=== PATIENT | female | born 1965 | race American Indian/Alaskan Native ===

== ENCOUNTER 2019-12-06 16:32 | Emergency (ER) | payer MEDICARE ==
[2019-12-06] MEDS ORDERED: KETOROLAC 60 MG/2 ML INJ IM ONE (17:08)
--- NOTE | 2019-12-06 17:39 | XRay Report ---
RIGHT KNEE 3 VIEW(S) INDICATION / CLINICAL INFORMATION: right knee pain COMPARISON: None available. FINDINGS: BONES / JOINT(S): No acute fracture or subluxation. No significant arthritis. SOFT TISSUES: Small joint effusion is suspected. ADDITIONAL FINDINGS: None. IMPRESSION: No acute osseous abnormality. Small joint effusion is suspected. Signer Name: Red Pinto MD Signed: 12/06/2019 5:35 PM Workstation Name: [id number]
--- NOTE | 2019-12-06 19:41 | Vascular Lab Report ---
DUPLEX DOPPLER LOWER EXTREMITY VEINS, RIGHT INDICATION / CLINICAL INFORMATION: right leg pain and swelling. TECHNIQUE: Duplex doppler imaging was performed through the veins of the right lower extremity using venous comp ression and other maneuvers. COMPARISON: None available. FINDINGS: RIGHT COMMON FEMORAL VEIN: Negative. RIGHT FEMORAL VEIN: Negative. RIGHT POPLITEAL VEIN: Negative. RIGHT CALF VEINS: Negative. ADDITIONAL FINDINGS: 4 cm right popliteal cyst IMPRESSION: 1. No sonographic evidence for DVT in the right lower extremity. 2. Right popliteal cyst Signer Name: Niels Rao MD Signed: 12/06/2019 7:37 PM Workstation Name: [id number]
[2019-12-06 19:57] VITALS: BP 116/66
--- NOTE | 2019-12-06 20:00 | Emergency Department Report ---
ED Extremity Problem HPI - General Chief complaint: Extremity Problem,Nontraumatic Stated complaint: LEG PAIN RT Time Seen by Provider: 12/06/19 16:57 Source: patient Mode of arrival: Ambulatory Limitations: No Limitations - History of Present Illness Initial comments: Patient is a 54-year-old female presents emergency room complaints of right leg pain that began a couple days ago. She states that she has pain in her right knee on the anterior and posterior side. She states that she feels like she has swelling in her right leg. She denies any calf pain. She denies any fall or injury. She denies any numbness or weakness. She denies any recent travel, recent surgery, immobilization, hormone use. she denies any CP or SOB. No allergies to medications. She states that she went through menopause. Severity scale (0 -10): 3 - Related Data Previous Rx's Medication Instructions Recorded Last Taken Type Cyclobenzaprine [Flexeril 10 MG 10 mg PO BID #14 tablet 03/21/16 Unknown Rx TAB] Ibuprofen [Motrin 800 MG tab] 800 mg PO BID PRN #14 tablet 03/21/16 Unknown Rx Naproxen [EC-Naprosyn] 500 mg PO BID PRN #20 tablet. 12/06/19 Unknown Rx Allergies Allergy/AdvReac Type Severity Reaction Status Date / Time No Known Allergies Allergy Unverified 10/05/13 12:45 ED Review of Systems ROS: Stated complaint: LEG PAIN RT Other details as noted in HPI Comment: All other systems reviewed and negative ED Past Medical Hx - Past Medical History Previous Medical History?: Yes Hx Psychiatric Treatment: Yes (schizophrenia) Additional medical history: depression - Surgical History Past Surgical History?: Yes Additional Surgical History: ovarian cyst removed - Social History Smoking Status: Never Smoker Substance Use Type: None - Medications Home Medications: Home Medications Medication Instructions Recorded Confirmed Last Taken Type Cyclobenzaprine [Flexeril 10 MG 10 mg PO BID #14 tablet 03/21/16 Unknown Rx TAB] Ibuprofen [Motrin 800 MG tab] 800 mg PO BID PRN #14 tablet 03/21/16 Unknown Rx Naproxen [EC-Naprosyn] 500 mg PO BID PRN #20 tablet. 12/06/19 Unknown Rx ED Physical Exam - General Limitations: No Limitations General appearance: alert, in no apparent distress - Head Head exam: Present: atraumatic, normocephalic - Eye Eye exam: Present: normal appearance - ENT ENT exam: Present: mucous membranes moist - Respiratory Respiratory exam: Present: normal lung sounds bilaterally. Absent: respiratory distress, wheezes, rales, rhonchi, stridor, chest wall tenderness, accessory muscle use, decreased breath sounds, prolonged expiratory - Cardiovascular Cardiovascular Exam: Present: regular rate, normal rhythm, normal heart sounds. Absent: systolic murmur, diastolic murmur, rubs - Extremities Exam Extremities exam: Present: other (ttp to the right anterior and posterior knee, mild amount of edema, no increased warmth or erythema, no skin changes, no calf ttp, no obvious edema down the RLE, neurovascularly intact) - Neurological Exam Neurological exam: Present: alert, oriented X3 - Psychiatric Psychiatric exam: Present: normal affect, normal mood - Skin Skin exam: Present: warm, dry, intact ED Course Vital Signs 12/06/19 12/06/19 16:45 20:12 Temperature 98.3 F Pulse Rate 75 76 Respiratory 17 16 Rate Blood Pressure 116/66 O2 Sat by Pulse 98 98 Oximetry ED Medical Decision Making - Radiology Data Radiology results: report reviewed DUPLEX DOPPLER LOWER EXTREMITY VEINS, RIGHT INDICATION / CLINICAL INFORMATION: right leg pain and swelling. TECHNIQUE: Duplex doppler imaging was performed through the veins of the right lower extremity using venous compression and other maneuvers. COMPARISON: None available. FINDINGS: RIGHT COMMON FEMORAL VEIN: Negative. RIGHT FEMORAL VEIN: Negative. RIGHT POPLITEAL VEIN: Negative. RIGHT CALF VEINS: Negative. ADDITIONAL FINDINGS: 4 cm right popliteal cyst IMPRESSION: 1. No sonographic evidence for DVT in the right lower extremity. 2. Right popliteal cyst Signer Name: Niels Rao MD Signed: 12/06/2019 7:37 PM Workstation Name: [id number] Transcribed By: TL Dictated By: Niels Rao MD Electronically Authenticated By: Niels Rao MD Signed Date/Time: 12/06/191936 DD/ 35 TD/TT: RIGHT KNEE 3 VIEW(S) INDICATION / CLINICAL INFORMATION: right knee pain COMPARISON: None available. FINDINGS: BONES / JOINT(S): No acute fracture or subluxation. No significant arthritis. SOFT TISSUES: Small joint effusion is suspected. ADDITIONAL FINDINGS: None. IMPRESSION: No acute osseous abnormality. Small joint effusion is suspected. Signer Name: Lora Pinto MD Signed: 12/06/2019 5:35 PM Workstation Name: [id number] Transcribed By: SS Dictated By: LORA PINTO Electronically Authenticated By: LORA PINTO Signed Date/Time: 12/06/191734 DD/ 33 TD/TT: - Medical Decision Making Patient is a 54-year-old female presents emergency room complaints of right leg pain that began a couple days ago. She states that she has pain in her right knee on the anterior and posterior side. She states that she feels like she has swelling in her right leg. She denies any calf pain. She denies any fall or injury. She denies any numbness or weakness. She denies any recent travel, recent surgery, immobilization, hormone use. she denies any CP or SOB. No allergies to medications. She states that she went through menopause. vitals are normal. on exam: ttp to the right anterior and posterior knee, mild amount of edema, no increased warmth or erythema, no skin changes, no calf ttp, no obvious edema down the RLE, neurovascularly intact. XR right knee: No acute osseous abnormality. Small joint effusion is suspected. doppler US RLE: 1. No sonographic evidence for DVT in the right lower extremity. 2. Right popliteal cyst. Patient given Toradol IM while in the emergency department symptoms improved. Discussed all results with patient and answered questions. Patient will be referred to orthopedic and primary care physician. Patient given prescription for naproxen. Patient placed in Braeden bandage by cardiovascular or nurse and remained neurovascularly intact. advised pt Please take medication as prescribed. Please do not wear Braeden bandage too tightly and do not wear at night while sleeping. Please use ice for 15 minutes at a time, rest, elevation of the leg. Follow-up with your primary care doctor. Follow-up with orthopedic doctor. Return to emergency room for any new or worsening symptoms. - Differential Diagnosis strain, sprain, DDD, effusion, gout, arthritis, DVT, bakers cyst Critical care attestation.: If time is entered above; I have spent that time in minutes in the direct care of this critically ill patient, excluding procedure time. ED Disposition Clinical Impression: Right leg pain, Knee effusion, right, Unruptured cyst of right popliteal space Disposition: - TO HOME OR SELFCARE Is pt being admited?: No Does the pt Need Aspirin: No Condition: Stable Instructions: Loomis's Cyst (ED), Knee Effusion (ED), RICE Therapy (ED) Additional Instructions: Please take medication as prescribed. Please do not wear Braeden bandage too tightly and do not wear at night while sleeping. Please use ice for 15 minutes at a time, rest, elevation of the leg. Follow-up with your primary care doctor. Follow-up with orthopedic doctor. Return to emergency room for any new or wor sening symptoms. Prescriptions: Naproxen [EC-Naprosyn] 500 mg PO BID PRN #20 tablet.dr PRN Reason: pain Referrals: JOHN DE LA FUENTE MD [Staff Physician] - 3-5 Days [facility] [Provider Group] - 3-5 Days [facility] [Outside] - 3-5 Days JEFFRY SPEARS MD [Staff Physician] - 3-5 Days [facility] [Provider Group] - 3-5 Days Time of Disposition: 19:59 Print Language: UZBEK
== END 2019-12-06 20:12 | disposition home or self-care (01) ==
LOC: ED 16:32
DX: M71.21 Synovial cyst of popliteal space [Baker], right knee (principal); F20.9 Schizophrenia, unspecified; F32.9 Major depressive disorder, single episode, unspecified; Z79.899 Other long term (current) drug therapy
CPT/HCPCS: 73562; 93971; 96372; 99284; J1885

== ENCOUNTER 2021-08-14 14:22 | Emergency (ER) | payer MEDICARE ==
[2021-08-14 14:35] VITALS: BP 129/78
--- NOTE | 2021-08-14 16:13 | Emergency Department Report ---
ED General Adult HPI - General Chief complaint: Abdominal Pain Stated complaint: ABD PAIN/SWOLLEN LEGS Time Seen by Provider: 08/14/21 15:32 Source: patient, EMS Mode of arrival: Stretcher Limitations: No Limitations - History of Present Illness Initial comments: Patient presents with complaints of generalized abdominal pain, sharp, non radiating, 7/10, not worsened or relieved by anything. Denies nausea, vomiting. Last BM was today and formed. Endorses flatulence. Denies dysuria, frequency, urgency, vaginal bleeding, discharge. -: week(s) - Related Data Previous Rx's Medication Instructions Recorded Last Taken Type Cyclobenzaprine [Flexeril 10 MG 10 mg PO BID #14 tablet 03/21/16 Unknown Rx TAB] Ibuprofen [Motrin 800 MG tab] 800 mg PO BID PRN #14 tablet 03/21/16 Unknown Rx Naproxen [EC-Naprosyn] 500 mg PO BID PRN #20 tablet. 12/06/19 Unknown Rx Allergies Allergy/AdvReac Type Severity Reaction Status Date / Time No Known Allergies Allergy Verified 08/14/21 14:32 ED Review of Systems ROS: Stated complaint: ABD PAIN/SWOLLEN LEGS Other details as noted in HPI Comment: All other systems reviewed and negative Constitutional: denies: chills, fever ED Past Medical Hx - Past Medical History Previous Medical History?: Yes Hx Psychiatric Treatment: Yes (schizophrenia) Additional medical history: depression - Surgical History Past Surgical History?: Yes Additional Surgical History: ovarian cyst removed - Social History Smoking Status: Never Smoker Substance Use Type: None - Medications Home Medications: Home Medications Medication Instructions Recorded Confirmed Last Taken Type Cyclobenzaprine [Flexeril 10 MG 10 mg PO BID #14 tablet 03/21/16 Unknown Rx TAB] Ibuprofen [Motrin 800 MG tab] 800 mg PO BID PRN #14 tablet 03/21/16 Unknown Rx Naproxen [EC-Naprosyn] 500 mg PO BID PRN #20 tablet. 12/06/19 Unknown Rx ED Physical Exam - General Limitations: No Limitations General appearance: alert, in no apparent distress - Head Head exam: Present: atraumatic, normocephalic - Eye Eye exam: Present: PERRL, EOMI - ENT ENT exam: Present: mucous membranes moist, other (airway patent) - Neck Neck exam: Present: other (supple; no JVD) - Respiratory Respiratory exam: Present: other (good air entry, nml I:E, CTAB, no use of NATALYA) - Cardiovascular Cardiovascular Exam: Present: regular rate. Absent: rubs, gallop - GI/Abdominal GI/Abdominal exam: Present: other (very distended with some shifting dullness; tender to palpation diffusely) - Extremities Exam Extremities exam: Present: other (3+ edema bilaterally in shins; non tender calves; neg Bernardo's sign bilaterally) - Back Exam Back exam: Present: full ROM. Absent: CVA tenderness (R), CVA tenderness (L) - Neurological Exam Neurological exam: Present: alert, oriented X3, CN II-XII intact. Absent: motor sensory deficit - Skin Skin exam: Present: warm, normal color ED Course Vital Signs 08/14/21 08/14/21 14:29 14:54 Temperature 97.4 F L Pulse Rate 100 H Respiratory 16 Rate Blood Pressure 129/78 [Left] O2 Sat by Pulse 97 99 Oximetry ED Medical Decision Making - Lab Data Result diagrams: 08/14/21 15:36 08/14/21 15:36 Laboratory Tests 08/14/21 08/14/21 08/14/21 15:36 15:36 16:20 WBC 12.2 H RBC 4.03 Hgb 10.0 L Hct 31.4 MCV 78 L MCH 25 L MCHC 32 RDW 15.5 H Plt Count 727 H Lymph % (Auto) 8.9 L [place] % (Auto) 7.1 Eos % (Auto) 0.8 Baso % (Auto) 0.7 Lymph # (Auto) 1.1 L [place] # (Auto) 0.9 H Eos # (Auto) 0.1 Baso # (Auto) 0.1 Seg Neutrophils % 82.5 H Seg Neutrophils # 10.1 H PT 14.5 INR 1.02 APTT 29.5 Sodium 133 L Potassium 3.9 Chloride 96.1 L Carbon Dioxide 22 Anion Gap 19 BUN 8 Creatinine 0.7 Estimated GFR > 60 BUN/Creatinine Ratio 11 Glucose 111 H Calcium 8.2 L Total Bilirubin < 0.20 AST 26 ALT 11 Alkaline Phosphatase 70 Total Protein 7.2 Albumin 2.7 L Albumin/Globulin Ratio 0.6 [address]ase [address] and left AMA - Medical Decision Making likely 2/2 tense ascites. need to r/o SBP, appendicitis, SBO and other acute surgical abdomen. Critical care attestation.: If time is entered above; I have spent that time in minutes in the direct care of this critically ill patient, excluding procedure time. ED Disposition Clinical Impression: Abdominal pain, Abdominal distension Disposition: 07 LEFT AGAINST MEDICAL ADVICE Is pt being admited?: No Does the pt Need Aspirin: No Condition: Stable Instructions: Abdominal Pain (ED) Time of Disposition: 18:30 (I explained to the patient the need for the CT abd/pelvis and paracentesis to rul out SBP and acute surgical abdomen. I also explained to the patient the risk of deterioration including up to fatal outcome. Patient has capacity, indicated understanding of instructions but was adamant about leaving AMA. does not want to wait for the CT scan, paracentesis or be admitted. )
[2021-08-14 16:26] LABS: Alanine Aminotransferase 11 units/L (7-56); Albumin 2.7 g/dL (3.9-5); Blood Urea Nitrogen 8 mg/dL (7-17); Calcium 8.2 mg/dL (8.4-10.2); Hemolysis Index 13
[2021-08-14 16:27] LABS: BUN/Creatinine Ratio 11
[2021-08-14 16:35] LABS: Basophils # (Auto) 0.1 K/mm3 (0.0-0.1); Basophils % (Auto) 0.7 % (0.0-1.8); Eosinophils # (Auto) 0.1 K/mm3 (0.0-0.4); Eosinophils % (Auto) 0.8 % (0.0-4.3); Hematocrit 31.4 % (30.3-42.9); Lymphocytes # (Auto) 1.1 K/mm3 (1.2-5.4); Lymphocytes % (Auto) 8.9 % (13.4-35.0); Mean Corpuscular HGB Conc 32 % (30-34); Mean Corpuscular Volume 78 fl (79-97); Monocytes # (Auto) 0.9 K/mm3 (0.0-0.8); Monocytes % (Auto) 7.1 % (0.0-7.3); Platelet Count 727 K/mm3 (140-440); Red Blood Count 4.03 M/mm3 (3.65-5.03); Red Cell Distribution Width 15.5 % (13.2-15.2)
[2021-08-14 17:49] LABS: INR 1.02 (0.87-1.13); Partial Thromboplastin Time 29.5 Sec. (24.2-36.6)
== END 2021-08-14 18:44 | disposition left against medical advice (07) ==
LOC: ED 14:22
DX: R10.9 Unspecified abdominal pain (principal); R14.0 Abdominal distension (gaseous); F20.9 Schizophrenia, unspecified
CPT/HCPCS: 36415; 80053; 83690; 85025; 85610; 85730; 99284

== ENCOUNTER → 2021-08-21 | Emergency (ER) | payer MEDICARE ==
[~2021-08-21] MED LIST: HEPARIN 10,000 UNITS/10 ML VIAL ONE; HEPARIN/ 0.45% NACL DRIP 25,000 UNIT/500 ML BAG ONE
== END ==
LOC: ED 02:11
DX: R60.9 Edema, unspecified (principal); Z53.21 Procedure and treatment not carried out due to patient leaving prior to being seen by health care provider
CPT/HCPCS: J1644 ×2; J3490

== ENCOUNTER 2021-08-24 03:03 | Emergency (ER) | payer MEDICARE ==
[2021-08-24 04:26] LABS: Basophils % (Auto) 0.3 % (0.0-1.8); Eosinophils % (Auto) 0.3 % (0.0-4.3); Hematocrit 29.7 % (30.3-42.9); Hemoglobin 9.7 gm/dl (10.1-14.3); Lymphocytes # (Auto) 0.8 K/mm3 (1.2-5.4); Lymphocytes % (Auto) 5.2 % (13.4-35.0); Mean Corpuscular HGB Conc 33 % (30-34); Mean Corpuscular Volume 77 fl (79-97); Monocytes % (Auto) 6.5 % (0.0-7.3); Platelet Count 639 K/mm3 (140-440); Red Blood Count 3.87 M/mm3 (3.65-5.03)
[2021-08-24 04:47] LABS: Alanine Aminotransferase 12 units/L (7-56); Albumin 2.5 g/dL (3.9-5); Blood Urea Nitrogen 9 mg/dL (7-17); Calcium 8.6 mg/dL (8.4-10.2); Hemolysis Index 34
[2021-08-24 04:52] LABS: BUN/Creatinine Ratio 13
[2021-08-24] MEDS ORDERED: PIPERACILLIN/TAZOBACTAM 3.375 3.375 GM/50 ML BAG IV ONE (08:08)
[2021-08-24 08:21] LABS: Bacteria,Urine 1+ /HPF (Negative); Bilirubin,Urine NEG (Negative); Blood,Urine MOD (Negative); Color,Urine Yellow (Yellow); Mucus,Urine FEW /HPF; Urobilinogen,Urine < 2.0 mg/dL (<2.0)
--- NOTE | 2021-08-24 09:32 | Emergency Department Report ---
ED Abdominal Pain HPI - General Chief Complaint: Abdominal Pain Stated Complaint: ABD PAIN/VOMITING Time Seen by Provider: 08/24/21 08:04 Source: patient Mode of arrival: Stretcher Limitations: No Limitations - History of Present Illness Initial Comments: Patient is 56-year-old female with a recent diagnosis of possible ovarian cancer with metastasis to the liver and peritoneum. Patient was recently admitted to this hospital and had a paracentesis with removal of ascites. Patient presented today stating that she is having more distention. She is also complaining of nausea and vomiting. She also reported fever and chills. No chest pain. MD Complaint: abdominal pain -: days(s) Location: diffuse Migration to: no migration - Related Data Home Medications Medication Instructions Recorded Confirmed Last Taken Apixaban [Eliquis] 5 mg PO BID 08/21/21 08/21/21 08/20/21 Allergies Allergy/AdvReac Type Severity Reaction Status Date / Time No Known Allergies Allergy Verified 08/21/21 10:04 ED Review of Systems ROS: Stated complaint: ABD PAIN/VOMITING Other details as noted in HPI Comment: All other systems reviewed and negative Constitutional: chills, fever Cardiovascular: denies: chest pain, palpitations Gastrointestinal: abdominal pain, nausea, vomiting Musculoskeletal: denies: back pain Neurological: denies: headache, weakness, numbness, paresthesias ED Past Medical Hx - Past Medical History Previous Medical History?: Yes Hx Psychiatric Treatment: Yes (schizophrenia) Additional medical history: depression - Surgical History Past Surgical History?: Yes Additional Surgical History: ovarian cyst removed - Social History Smoking Status: Never Smoker Substance Use Type: None - Medications Home Medications: Home Medications Medication Instructions Recorded Confirmed Last Taken Type Apixaban [Eliquis] 5 mg PO BID 08/21/21 08/21/21 08/20/21 History ED Physical Exam - General Limitations: No Limitations General appearance: alert, in no apparent distress - Head Head exam: Present: atraumatic, normocephalic, normal inspection - Eye Eye exam: Present: normal appearance - ENT ENT exam: Present: normal exam, normal orophraynx, mucous membranes moist - Neck Neck exam: Present: normal inspection, full ROM. Absent: tenderness, meningismus - Respiratory Respiratory exam: Present: normal lung sounds bilaterally - Cardiovascular Cardiovascular Exam: Present: regular rate, normal rhythm, normal heart sounds - GI/Abdominal GI/Abdominal exam: Present: soft, distended, normal bowel sounds, other (Positive shifting dullness.). Absent: tenderness, guarding, rebound, rigid, mass, pulsatile mass, hernia - Extremities Exam Extremities exam: Present: normal inspection, full ROM, normal capillary refill. Absent: tenderness, pedal edema, calf tenderness - Back Exam Back exam: Present: normal inspection, full ROM. Absent: CVA tenderness (R), CVA tenderness (L) - Neurological Exam Neurological exam: Present: alert, oriented X3, CN II-XII intact, normal gait, reflexes normal. Absent: motor sensory deficit - Psychiatric Psychiatric exam: Present: normal mood - Skin Skin exam: Present: warm, intact, normal color ED Course Vital Signs 08/24/21 08/24/21 08/24/21 03:53 09:21 09:31 Temperature 98 F Pulse Rate 78 105 H 107 H Respiratory 18 29 H Rate Blood Pressure 122/74 114/71 O2 Sat by Pulse 98 100 Oximetry 08/24/21 08/24/21 08/24/21 09:45 10:01 10:15 Temperature Pulse Rate 105 H 105 H 104 H Respiratory 23 21 21 Rate Blood Pressure 114/71 126/72 126/72 O2 Sat by Pulse 96 96 95 Oximetry 08/24/21 08/24/21 08/24/21 10:31 10:40 11:55 Temperature Pulse Rate 110 H Respiratory 23 Rate Blood Pressure 126/72 123/79 O2 Sat by Pulse 96 99 96 Oximetry 08/24/21 12:01 Temperature Pulse Rate Respiratory Rate Blood Pressure 123/79 O2 Sat by Pulse 95 Oximetry ED Medical Decision Making - Lab Data Result diagrams: 08/24/21 04:11 08/24/21 04:11 - Radiology Data Radiology results: report reviewed - Medical Decision Making Patient is 56-year-old female with a recent diagnosis of possible ovarian cancer with metastasis to the liver and peritoneum. Patient was recently admitted to this hospital and had a paracentesis with removal of ascites. Patient presented today stating that she is having more distention. She is also complaining of nausea and vomiting. She also reported fever and chills. No chest pain. Labs reviewed and showed leukocytosis 15,000. Urine is strongly positive for UTI. Patient received Zosyn. CT abdomen and pelvis with IV contrast again confirmed diffuse metastases lesion into the peritoneum and the liver. Patient informed me that she already started following up with gynecology oncologist. She stated that she has an appointment with him this coming Thursday. I gave patient prescription for pain medicine and advised her to follow-up with her appointment and to return to the ER if she develop any new symptoms. Critical care attestation.: If time is entered above; I have spent that time in minutes in the direct care of this critically ill patient, excluding procedure time. ED Disposition Clinical Impression: Acute abdominal pain, UTI (urinary tract infection), Ovarian cancer Disposition: HOME / SELF CARE / HOMELESS Is pt being admited?: No Condition: Stable Instructions: Abdominal Pain (ED), Ovarian Tumors, Urinary Tract Infection, Adult Referrals: PRIMARY CARE, [Primary Care Provider] - 3-5 Days
[2021-08-24 09:58] LABS: INR 1.12 (0.87-1.13); Partial Thromboplastin Time 30.9 Sec. (24.2-36.6)
--- NOTE | 2021-08-24 11:36 | Cat Scan Report ---
CT abdomen pelvis w con INDICATION / CLINICAL INFORMATION: abdominal pain. TECHNIQUE: Axial CT imaging of abdomen and pelvis was obtained with 100 cc Omnipaque 300 IV contrast. Coronal an d sagittal reformatted imaging obtained and reviewed. All CT scans at this location are performed us ing CT dose reduction for ALARA by means of automated exposure control. COMPARISON: Prior CT abdomen/pelvis 08/21/2021 FINDINGS: CT abdomen with contrast demonstrates hepatomegaly. There is nodular contour of the liver parenchyma. Multiple hepatic lesions are present as noted on recent study not appreciably changed. Some of the l esions are subcapsular in location. There is bulky peritoneal implant along the superior aspect of th e dome of the liver. Spleen is normal in size. There is subcapsular peritoneal implant along the medi al surface near the splenic hilum. This is unchanged. Pancreas, kidneys, and adrenal glands appear gr ossly unremarkable. Gallbladder is present without definite abnormality. No biliary dilatation. Randy l vein is patent. Abdominal aorta is unremarkable. Moderate amount of free fluid is seen throughout the abdomen or pelvis. The amount of fluid is appear ed to be decreased since recent CT of 08/21/2021 consistent with paracentesis performed on 08/22/2021. Enlarged lymph nodes are seen throughout the abdomen and pelvis unchanged from prior exam. CT pelvis with contrast again enlarged uterus containing multiple masses. Exact etiology of the uteri ne masses is unclear but certainly could represent fibroids and/or malignancy. The cystic adnexal les ion on the left is again noted unchanged. Peritoneal nodularity is seen throughout the pelvis consist ent with peritoneal metastases and carcinomatosis. Images obtained of the lung bases demonstrate small right pleural effusion with right basilar atelect asis/consolidation. Left lung base is clear. IMPRESSION: 1. As noted on recent CT from 08/21/2021, there are findings throughout the abdomen and pelvis consist ent with extensive peritoneal carcinomatosis and lymphadenopathy. There are numerous hepatic lesions consistent with metastatic disease/subcapsular metastatic implants. Overall appearance is unchanged f rom recent CT. Please refer to recent prior CT for measurements, if needed. 2. The amount of ascites noted throughout the abdomen and pelvis has definitively decreased since darryn or CT consistent with interval paracentesis. There is still a small to moderate amount of ascites rem aining within the abdomen and pelvis. 3. Persistent right lower lobe pleural-parenchymal disease unchanged. 4. No significant interval change from recent CT other than interval decrease in amount of ascites no edwige. Signer Name: Teresa Faye MD Signed: 08/24/2021 11:32 AM Workstation Name: [id number]
[2021-08-24 12:08] VITALS: BP 123/79
== END 2021-08-24 12:20 | disposition home or self-care (01) ==
LOC: ED 03:03
DX: N39.0 Urinary tract infection, site not specified (principal); R10.9 Unspecified abdominal pain; Z85.43 Personal history of malignant neoplasm of ovary; F20.9 Schizophrenia, unspecified
CPT/HCPCS: 36415; 74177; 80053; 81001; 83690; 85025; 85610; 85730; 87040; 96365; 99284; J2543; Q9967